=== PATIENT | male | born 1995 | race Caucasian/White ===

== ENCOUNTER 2018-05-14 14:07 | Emergency (ER) | payer MEDICAID ==
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
--- NOTE | 2018-05-16 09:11 | CR ---
FOOT RIGHT 3 views CLINICAL HISTORY:First metacarpal pain, trauma FINDINGS:Articular surfaces are smooth. There is no fracture or dislocation. Impression: Negative
== END 2018-05-14 16:44 | disposition home or self-care (01) ==
LOC: JP.ED 14:07
DX: S92.234A Nondisplaced fracture of intermediate cuneiform of right foot, initial encounter for closed fracture (principal); F17.210 Nicotine dependence, cigarettes, uncomplicated; W20.8XXA Other cause of strike by thrown, projected or falling object, initial encounter
CPT/HCPCS: 73620-26-RT; 73620-RT; 99283; 99284

== ENCOUNTER 2019-05-25 19:47 | Emergency (ER) | payer MEDICAID, OTHER ==
[2019-05-25] MEDS ORDERED: Ketorolac 60 MG/2 ML SDV IM ONE (20:17)
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
--- NOTE | 2019-05-26 09:26 | CR ---
Lumbar Spine 2 or 3V CLINICAL HISTORY: Upper back pain, trauma FINDINGS: The vertebral body heights are maintained. Patient has a rotolevo scoliosis increased slightly since 2010. Transverse and spinous processes and pedicles appear intact. Alignment is maintained. IMPRESSION: Levorotoscoliosis No fracture or subluxation on limited study
== END 2019-05-25 21:18 | disposition home or self-care (01) ==
LOC: JP.ED 19:47
DX: S39.92XA Unspecified injury of lower back, initial encounter (principal); J10.1 Influenza due to other identified influenza virus with other respiratory manifestations; F17.210 Nicotine dependence, cigarettes, uncomplicated; V89.2XXA Person injured in unspecified motor-vehicle accident, traffic, initial encounter
CPT/HCPCS: 72100; 87804; 96372; 99283; J1885

== ENCOUNTER 2019-06-05 00:17 | Emergency (ER) | payer SELFPAY ==
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
--- NOTE | 2019-06-05 12:03 | CR ---
Ankle Min 3V Rt CLINICAL HISTORY: Injury FINDINGS: The soft tissues are swollen. There is a oblique displaced fracture of the distal fibula. There is widening of the medial ankle mortise. Impression: Fracture distal fibula Minimal lateral subluxation of talus
== END 2019-06-05 01:19 | disposition home or self-care (01) ==
LOC: JP.ED 00:17
DX: S82.441A Displaced spiral fracture of shaft of right fibula, initial encounter for closed fracture (principal); F17.210 Nicotine dependence, cigarettes, uncomplicated; X50.1XXA Overexertion from prolonged static or awkward postures, initial encounter; Y93.89 Activity, other specified
CPT/HCPCS: 29515; 73610-26-RT; 73610-RT; 99283; 99283-25